=== PATIENT | male | born 1955 | race Caucasian/White ===

== ENCOUNTER 2021-02-10 00:07 | Emergency (ER) | payer BC, MEDICARE ==
[~2021-02-10] VITALS: Ht 167.6 cm; Wt 70.4 kg
[2021-02-10 02:16] LABS: BASO % 0.6 % (0.0-1.0); EOS # 0.1 10^3/uL (0.0-0.5); EOS % 1.9 % (0.0-3.0); HEMATOCRIT 45.1 % (42.0-52.0); HEMOGLOBIN 15.7 g/dl (13.5-17.5); LYMPH % 13.9 % (24.0-44.0); MEAN CORPUSCULAR HEMOGLOBIN 30.7 pg (27.0-33.0); MEAN CORPUSCULAR HGB CONC 34.8 g/dl (32.0-36.5); MEAN CORPUSCULAR VOLUME 88.1 fl (80.0-96.0); MONO # 0.4 10^3/uL (0.0-0.8); MONO % 5.7 % (2.0-8.0); NEUTROPHILS # 5.6 10^3/uL (1.5-8.5); NEUTROPHILS % 77.8 % (36.0-66.0); PLATELET COUNT, AUTOMATED 223 10^3/uL (150-450); RED BLOOD COUNT 5.12 10^6/uL (4.30-6.10); WHITE BLOOD COUNT 7.2 10^3/uL (4.0-10.0)
[2021-02-10 02:51] LABS: ALT/SGPT 38 U/L (12-78); BILIRUBIN,DIRECT 0.1 MG/DL (0.0-0.2); BILIRUBIN,TOTAL 0.4 MG/DL (0.2-1.0); BLOOD UREA NITROGEN 22 MG/DL (7-18); CALCIUM LEVEL 8.9 MG/DL (8.8-10.2); CARBON DIOXIDE LEVEL 31 MEQ/L (21-32); CHLORIDE LEVEL 107 MEQ/L (98-107); GLOMERULAR FILTRATION RATE > 60.0 (>49); GLUCOSE, FASTING 122 MG/DL (70-100); LIPASE 154 U/L (73-393); POTASSIUM SERUM 4.1 MEQ/L (3.5-5.1); SODIUM LEVEL 141 MEQ/L (136-145); TOTAL PROTEIN 7.5 GM/DL (6.4-8.2)
[2021-02-10] MEDS ORDERED: ONDANSETRON 4MG/2ML VIAL IV ONE (03:10)
[2021-02-10] MEDS ORDERED: MORPHINE 4 MG/ML 1ML VIAL/SYRINGE (J2270) IV PRN (03:10)
[2021-02-10] MEDS ORDERED: ISOVUE-370 76% 100ML VIAL As Ordered ONE (03:16)
--- NOTE | 2021-02-10 04:17 | REPVR ---
PROCEDURE INFORMATION: Exam: CT Abdomen And Pelvis With Contrast Exam date and time: 02/10/2021 3:29 AM Age: 65 years old Clinical indication: Abdominal pain; Localized; Right upper quadrant (ruq); Additional info: Ruq abd pain TECHNIQUE: Imaging protocol: Computed tomography of the abdomen and pelvis with contrast. Radiation optimization: All CT scans at this facility use at least one of these dose optimization techniques: automated exposure control; mA and/or kV adjustment per patient size (includes targeted exams where dose is matched to clinical indication); or iterative reconstruction. Contrast material: ISOVUE 370; Contrast volume: 100 ml; Contrast route: INTRAVENOUS (IV); COMPARISON: No relevant prior studies available. FINDINGS: Lungs: Minimal dependent atelectasis in the lower lobes. Liver: Normal. No mass. Gallbladder and bile ducts: There are 2 large gallstones in the gallbladder measuring up to 20 mm. Pancreas: Normal. No ductal dilation. Spleen: Minimal splenic calcification is noted. The spleen measures 10.6 cm. Adrenal glands: Normal. No mass. Kidneys and ureters: Normal. No hydronephrosis. Stomach and bowel: Partial ascending colectomy additional small bowel anastomosis in the right pelvis. Appendix: No evidence of appendicitis. Intraperitoneal space: Unremarkable. No free air. No significant fluid collection. Vasculature: Unremarkable. No abdominal aortic aneurysm. Lymph nodes: Unremarkable. No enlarged lymph nodes. Urinary bladder: Unremarkable as visualized. Reproductive: Unremarkable as visualized. Bones/joints: Unremarkable. No acute fracture. Soft tissues: Unremarkable. IMPRESSION: 1. Cholelithiasis with 2 large gallstones in the gallbladder measuring up to 20 mm. 2. Status post partial ascending colectomy and small bowel anastomosis in the right pelvis. 3. Otherwise negative CT abdomen/pelvis. Electronically signed by: Mal Israel On 02/10/2021 04:18:32 AM
--- NOTE | 2021-02-10 04:26 | REPVR ---
PROCEDURE INFORMATION: Exam: US Abdomen, Limited; Right Upper Quadrant Exam date and time: 02/10/2021 3:21 AM Age: 65 years old Clinical indication: Abdominal pain; Generalized; Additional info: Ruq abd pain, nausea TECHNIQUE: Imaging protocol: US abdomen. Real time ultrasound with image documentation. Limited exam focused on the right upper quadrant. COMPARISON: No relevant prior studies available. FINDINGS: Liver: The liver demonstrates no focal defects and measures 14.5 cm. Gallbladder: The gallbladder demonstrates multiple shadowing gallstones measuring up to 3.4 cm. No gallbladder wall thickening measuring 2 mm. There is trace pericholecystic fluid and borderline distention of the gallbladder. Common bile duct: The CBD measures 4-5 mm. Pancreas: Limited visualization of the pancreas demonstrates no gross abnormality in the neck. Right kidney: The right kidney measures 11.0 cm with no hydronephrosis. IMPRESSION: 1. Cholelithiasis with multiple shadowing stones. There is no gallbladder wall thickening measuring 2 mm but borderline distention and trace pericholecystic fluid which may reflect cholecystitis. 2. Otherwise negative right upper quadrant sonogram. Electronically signed by: Mal Israel On 02/10/2021 04:26:50 AM
[2021-02-10 07:13] VITALS: BP 100/71
== END 2021-02-10 07:14 | disposition home or self-care (01) ==
LOC: M ED 00:07
DX: K80.50 Calculus of bile duct without cholangitis or cholecystitis without obstruction (principal); Z87.19 Personal history of other diseases of the digestive system; Z90.49 Acquired absence of other specified parts of digestive tract
CPT/HCPCS: 74177; 76705; 80048; 80076; 83690; 85025; 96374; 96375; 99284; J2270; J2405; Q9967

== ENCOUNTER → 2021-05-10 | Outpatient (CLI) | payer BC, MEDICARE ==
[~2021-05-10] MED LIST: ESOM20CA25 PO
== END ==
LOC: M LABSMTC 12:51
PROVIDERS: ATTEND Anesthesiology
DX: Z01.812 Encounter for preprocedural laboratory examination (principal); Z20.822 Contact with and (suspected) exposure to COVID-19

== ENCOUNTER 2021-05-15 11:19 | Day surgery (SDC) | payer BC, MEDICARE ==
[~2021-05-15] VITALS: Ht 167.6 cm; Wt 68.4 kg
[~2021-05-15 11:19] MED LIST changes: +ACETAMINOPHEN 1000MG 100ML IV BTL (OFIRMEV) (J0131 PER 10MG) As Ordered ONE; +AMPICILLIN SOD/SULBACTAM SOD 3 GM in D5W MINI-BAG PLUS 100 ML IV ONE; +CelecoXIB 400 MG CAP PO ONE; +KETOROLAC 60MG 2ML VIAL As Ordered ONE; +LIDOCAINE 2% 100MG/5ML SDV (FOR ANES.) As Ordered ONE; +LR 1,000 ML IV ONE; +MIDAZOLAM INJ 2MG/2ML VIAL (J2250 PER 1MG) As Ordered ONE; +ONDANSETRON 4MG/2ML VIAL As Ordered ONE; +ROCURONIUM BROMIDE 50 MG/5 ML VIAL As Ordered ONE; +SUGAMMADEX SODIUM 500 MG/5 ML VIAL (BRIDION) As Ordered ONE; +dexameTHASONE 4 MG/ML 1ML VIAL (J1100 PER 1MG) As Ordered ONE; +fentaNYL 100 MCG/2 ML INJECTION (J3010) As Ordered ONE; +propofoL 200 MG/20 ML VIAL As Ordered ONE
[2021-05-15] MEDS ORDERED: IBUP200C25 PO (11:48)
[2021-05-15] MEDS ORDERED: BUPIVACAINE HCL 0.25% 30ML VIAL As Ordered ONE (13:55)
[2021-05-15] MEDS ORDERED: LIDOCAINE 1% SDV 30ML VIAL As Ordered ONE (13:55)
[2021-05-15] MEDS ORDERED: fentaNYL 100 MCG/2 ML INJECTION (J3010) As Ordered ONE (14:36)
[2021-05-15] MEDS ORDERED: NORCO, ANEXSIA 5/325MG TABLET (HYDROcodone/ACETAMINOPHEN) PO PRN ×2 (16:50)
[2021-05-15] MEDS ORDERED: ONDANSETRON 4MG/2ML VIAL IV PRN ×2 (16:50→17:05)
[2021-05-15] MEDS ORDERED: LR 1,000 ML IV SCH ×2 (16:50→17:05)
[2021-05-15] MEDS ORDERED: KETOROLAC 30 MG/ML 1ML VIAL IV PRN (16:50)
[2021-05-15] MEDS ORDERED: oxyCODONE 5MG TAB PO PRN (17:05)
[2021-05-15] MEDS ORDERED: fentaNYL 100 MCG/2 ML INJECTION (J3010) IV PRN (17:05)
[2021-05-15 18:15] VITALS: BP 124/72
[2021-05-15 18:45] VITALS: BP 125/73
[2021-05-15 19:45] VITALS: BP_SYST 123; BP_SYST 126; BP_DIAS 71
[2021-05-15] MEDS: SENOKOT S TAB PO SCH (20:41)
[2021-05-15] MEDS: HEPARIN SOD (PORCINE) 5000UNITS/ML 1ML VIAL/SYRINGE SC SCH (20:43)
[2021-05-15 20:45] VITALS: BP 125/71
[2021-05-15 21:45] VITALS: BP 125/70
[2021-05-15 23:00] VITALS: BP 123/70
[2021-05-16 03:18] VITALS: BP 112/67
[2021-05-16 06:00] VITALS: BP 118/69
[2021-05-16 07:17] LABS: BASO % 0.3 % (0.0-1.0); HEMATOCRIT 40.3 % (42.0-52.0); HEMOGLOBIN 14.6 g/dl (13.5-17.5); LYMPH # 0.8 10^3/uL (1.5-5.0); LYMPH % 7.8 % (24.0-44.0); MEAN CORPUSCULAR HEMOGLOBIN 31.5 pg (27.0-33.0); MEAN CORPUSCULAR HGB CONC 36.2 g/dl (32.0-36.5); MEAN CORPUSCULAR VOLUME 86.9 fl (80.0-96.0); MONO # 0.9 10^3/uL (0.0-0.8); MONO % 8.2 % (2.0-8.0); NEUTROPHILS # 8.9 10^3/uL (1.5-8.5); NEUTROPHILS % 83.3 % (36.0-66.0); PLATELET COUNT, AUTOMATED 181 10^3/uL (150-450); RED BLOOD COUNT 4.64 10^6/uL (4.30-6.10); WHITE BLOOD COUNT 10.6 10^3/uL (4.0-10.0)
[2021-05-16 07:48] LABS: ALBUMIN 3.1 GM/DL (3.2-5.2); ALT/SGPT 63 U/L (12-78); BILIRUBIN,TOTAL 0.6 MG/DL (0.2-1.0); BLOOD UREA NITROGEN 17 MG/DL (7-18); CALCIUM LEVEL 8.1 MG/DL (8.8-10.2); CARBON DIOXIDE LEVEL 29 MEQ/L (21-32); CHLORIDE LEVEL 106 MEQ/L (98-107); CREATININE FOR GFR 0.93 MG/DL (0.70-1.30); GLOMERULAR FILTRATION RATE > 60.0 (>49); GLUCOSE, FASTING 131 MG/DL (70-100); POTASSIUM SERUM 3.9 MEQ/L (3.5-5.1); SODIUM LEVEL 139 MEQ/L (136-145); TOTAL PROTEIN 5.7 GM/DL (6.4-8.2)
[2021-05-16] MEDS: SENOKOT S TAB PO SCH ×2 (08:25→08:34)
[2021-05-16] MEDS: HEPARIN SOD (PORCINE) 5000UNITS/ML 1ML VIAL/SYRINGE SC SCH (08:33)
[2021-05-16] MEDS ORDERED: PANTOPRAZOLE 40MG VIAL (C9113 PER 1) IV SCH (09:00)
--- NOTE | 2021-05-16 09:27 | ROOPDOC ---
[facility] Report Of Operation Report of Operation DATE OF PROCEDURE: 05/15/21 PREPROCEDURE DIAGNOSES: Symptomatic cholelithiasis. 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 PROCEDURE PERFORMED: Robotic assisted laparoscopic lysis of adhesion (extensive. It took me more than 1 hour to perform the lysis of adhesion part), laparoscopic cholecystectomy with use of ICG/firefly for biliary tract identific ation. SURGEON: Gray Jauregui MD ANESTHESIA: General endotracheal anesthesia. ESTIMATED BLOOD LOSS: Approximately 30 mL. COMPLICATIONS: None. REMARKS: Patient is a 65-year-old male who presented himself to the emergency department with epigastric and right upper quadrant abdominal pain found to have evidence for cholelithiasis. He has prior histories of abdominal surgeries for bowel obstruction. FINDINGS: Multiple bowel to abdominal wall, to liver adhesions precluding view of the gallbladder that required extensive lysis of adhesions in order to start the cholecystectomy. The liver is adhered to the abdominal wall raising the underside of the liver exposing most of the gallbladder without much retraction needed. Moderately distended, only minimally thickened wall. The course of the cystic duct, common hepatic duct common bile duct easily visible and white light also in firefly. Gallbladder illuminates and firefly. SPECIMENS REMOVED: Gallbladder DESCRIPTION OF PROCEDURE: . GRAY JAUREGUI MD May 16, 2021 09:27
--- NOTE | 2021-05-16 09:40 | IPNPDOC ---
Text Note Date of Service The patient was seen on 05/16/21. NOTE Patient seen this morning. Reports only minimal discomfort at the incision. Denies any nausea, vomiting, severe abdominal pain. He is stable, afebrile postoperatively. Vital signs reviewed T-max 98.4 heart rate 70 blood pressure 118/69 96% at room air Patient looks very comfortable Abdomen appears minimally distended. He has 5 port sites (4 robotic port sites, 1 5 mm right upper quadrant port site. Mild ecchymosis around the extraction site which is located to the right of the umbilicus) minimally tender around the port sites. Nontender over the right upper quadrant. Nontender on all other areas of the abdomen. Labs reviewed WBC 10.6. LFTs normal. CRP 0.3 Impression and plan Extensive bowel to abdominal wall to liver adhesions Cholelithiasis, chronic cholecystitis status post robotic assisted laparoscopic cholecystectomy, laparoscopic lysis of adhesions He looks to be doing well postoperatively. I kept him overnight for continued monitoring as well as for me to reexamine him in the morning. He had extensive lysis of bowel to abdominal wall to liver, to nearby bowel adhesions that I thought would be high risk for ileus even inadvertent injuries. No signs of any discomfort more than where the port sites are. He is tolerating regular food. He is hemodynamically stable. I will discharge him home. Follow-up with me in 2 weeks. VS,eKll, I+O VS, Apurvae, I+O Laboratory Tests 05/16/21 06:50 Vital Signs Date Time Temp Pulse Resp B/P (MAP) Pulse Ox O2 Delivery O2 Flow Rate FiO2 05/16/21 06:00 98.4 70 21 118/69 (85) 97 Room Air 05/15/21 17:15 10.0 I&O- Last 24 Hours up to 6 AM 05/16/21 06:00 Intake Total 3200 ml Output Total 20 ml Balance 3180 ml BRISA LEYVA MD May 16, 2021 09:40
[2021-05-16 10:00] VITALS: BP 121/81
== END 2021-05-16 14:20 | disposition home or self-care (01) ==
LOC: M SDC 11:19 → M MS5PR 18:15 → M SDC 05-16 14:20
PROVIDERS: ATTEND Surgery
DX: K80.10 Calculus of gallbladder with chronic cholecystitis without obstruction (principal); K66.0 Peritoneal adhesions (postprocedural) (postinfection); K21.9 Gastro-esophageal reflux disease without esophagitis; Z79.899 Other long term (current) drug therapy
CPT/HCPCS: 36415; 47563; 49329; 80053; 85025; 86140; 88304; 96361; 96372; 96374; 96375; C9113; J0131; J1100; J1644; J1885; J2250; J2405; J3010; S2900